=== PATIENT | male | born 1965 | race Caucasian/White ===

== ENCOUNTER 2017-03-23 11:47 | Outpatient (CLI) | payer MEDICARE, OTHER ==
[2017-03-23] VITALS (12 sets, daily range): BP systolic 88–127; BP diastolic 58–97; PULSE 65–141
[~2017-03-23 11:47] MED LIST: ALDACTONE 25MG25 M1 PO; AMLODIPINE5 MG PO; ANDROGEL162PKT TOP; ASACOL; ASACOL HD800 MG PO; ASACOL PO; ASPIRIN 81M81 MG/TA2 PO; ATIVAN 1MG T1 MG/TAB PO; CLEOCIN HC150 MG/CAP PO; COREG12.5 MG PO; D-31000 IU PO; DAZIDOX10 MG PO; EC-NAPROSYN500 MG PO; EMBREL; HCTZ; HUMIRA40 MG/0.1 SC; HYDROCODONE/APAP; IMODIUM 2MG CAPS2 MG PO; IMURAN 50MG TAB50 MG PO; INSPRA25 MG; INSPRA25 MG PO; LANOXIN 0.25M0.25 MG PO; LASIX 20MG TABL20 MG PO; LEVAQUIN 750MG750 M1 PO; LIPITOR20 MG PO; LOPRESSOR 550 MG/TAB PO; MASON NATURAL1000 IU PO; METOPROLOL TART75 MG PO; NARCAN .4MG0.4 MG/ML IJ; NEURONTIN100 MG/CAP; NEURONTIN300 MG/CAP PO; NORVASC2.5 MG PO; OXY IR5 MG PO; PERCOCET 325 MG1 TA5 PO; PERIDEX (CHLOR480 ML MM; PLAVIX 75MG TAB75 MG PO; PRADAXA 150MG150 MG PO; PREDNISONE20 MG PO; PRINIVIL10 MG PO; PRINIVIL5 MG PO; PROAIR HFA0.09 MG/AC IH; PROTONIX 40MG T40 MG PO; PROTONIX40 MG/Pack PO; REGADENOSON IV; REMICADE V100 MG/VIA; ROXICODONE 55 MG/TAB PO; ROXICODONE15 MG PO; SF 1.1% GEL1.1% DE; SODIUM FLUORID TOP; TOPROL XL 25MG25 MG PO; TOPROL XL 50MG50 MG PO; TOPROL XL100 MG PO; TYLENOL 500MG500 MG PO; VIAGRA100 MG PO; VITAMIN D31000 I1 PO; WELLBUTRIN 75MG75 MG PO; ZESTRIL 10MG10 MG PO; ZOFRAN 4MG T4 MG/TAB PO; ZOLOFT 100MG100 MG; ZOLOFT 100MG100 MG PO
[2017-03-23 12:33] LABS: PROTHROMBIN TIME 11.6 SECONDS (9.7-12.8)
[2017-03-23 12:36] LABS: POTASSIUM 4.9 mmol/L (3.4-5.0)
[2017-03-23 13:11] LABS: THYROID STIMULATING HORMONE 3.08 uIU/mL (0.465-4.680)
[2017-03-23] MEDS ORDERED: ASPIRIN 81M81 MG/TA2 PO (15:06)
[2017-03-23] MEDS ORDERED: CLEOCIN HC150 MG/CAP PO (15:06)
[2017-03-23] MEDS ORDERED: TYLENOL 500MG500 MG PO (15:07)
[2017-03-23] MEDS ORDERED: IMURAN 50MG TAB50 MG PO (15:07)
[2017-03-23] MEDS ORDERED: GLUCOPHAGE500 MG/TAB PO (15:08)
[2017-03-23] MEDS ORDERED: MULTIPLE VITAMI1 CAP PO (15:08)
[2017-03-23] MEDS ORDERED: CIALIS20 MG PO (15:09)
[2017-03-23] MEDS ORDERED: IMODIUM 2MG CAPS2 MG PO (15:10)
[2017-03-23] MEDS ORDERED: ZYRTEC 10MG10 MG PO (15:10)
[2017-03-23] MEDS ORDERED: ZOFRAN8 MG PO (15:11)
[2017-03-23] MEDS ORDERED: LIPOZENE PO (15:11)
[2017-03-23] MEDS ORDERED: METABOUP PLUS PO (15:12)
[2017-03-23] MEDS ORDERED: LASIX 20MG TABL20 MG PO (15:13)
[2017-03-23] MEDS ORDERED: PROVENTIL0.09 MG/A1 IH (15:13)
[2017-03-23] MEDS ORDERED: PACERONE400 MG PO (15:57)
[2017-03-23] MEDS ORDERED: ELIQUIS 5MG PO (15:57)
== END 2017-03-23 17:22 | disposition home or self-care (01) ==
LOC: EUO 11:47
PROVIDERS: Internal Medicine Interventional Cardiology
DX: I48.91 Unspecified atrial fibrillation (principal)
CPT/HCPCS: J0282; J7030; J7060

== ENCOUNTER 2017-07-06 10:54 | Day surgery (SDC) | payer MEDICARE, OTHER ==
[~2017-07-06] VITALS: Ht 175.3 cm; Wt 112.4 kg
[~2017-07-06 10:54] MED LIST changes: +CIALIS20 MG PO; +ELIQUIS 5MG PO; +GLUCOPHAGE500 MG/TAB PO; +LIPOZENE PO; +METABOUP PLUS PO; +MULTIPLE VITAMI1 CAP PO; +PACERONE400 MG PO; +PROVENTIL0.09 MG/A1 IH; +ZOFRAN8 MG PO; +ZYRTEC 10MG10 MG PO
[2017-07-06 11:24] VITALS: BP 137/119; PULSE 87; TEMP 98
[2017-07-06 11:28] VITALS: BP 137/119; PULSE 87; TEMP 98
[2017-07-06 11:56] VITALS: BP 114/85; PULSE 52; TEMP 98
[2017-07-06 13:03] LABS: INR 1.4 (0.8-3.0); PROTHROMBIN TIME 16.6 SECONDS (9.7-12.8)
[2017-07-06 13:10] LABS: POTASSIUM 4.3 mmol/L (3.4-5.0)
[2017-07-06 13:43] LABS: THYROID STIMULATING HORMONE 4.32 uIU/mL (0.465-4.680)
[2017-07-06 14:49] VITALS: BP 115/72; PULSE 66; TEMP 98
== END 2017-07-06 14:59 | disposition home or self-care (01) ==
LOC: COL.CAR 10:54
PROVIDERS: Internal Medicine Interventional Cardiology
DX: I48.0 Paroxysmal atrial fibrillation (principal); I34.0 Nonrheumatic mitral (valve) insufficiency; I50.20 Unspecified systolic (congestive) heart failure; Z88.8 Allergy status to other drugs, medicaments and biological substances; Z88.0 Allergy status to penicillin; Z88.1 Allergy status to other antibiotic agents
CPT/HCPCS: G9654; J2250; J2704

== ENCOUNTER 2018-07-01 11:15 | Day surgery (SDC) | payer MEDICARE, OTHER ==
[~2018-07-01] VITALS: Ht 175.4 cm; Wt 118.0 kg
[~2018-07-01 11:15] MED LIST changes: +GLUCOPHAGE1000 MG PO; -GLUCOPHAGE500 MG/TAB PO; +NEURONTIN600 MG/TAB PO; +WELLBUTRIN XL300 M1 PO
[2018-07-01 12:08] VITALS: BP 93/63; PULSE 98; TEMP 98.1
[2018-07-01 12:19] LABS: POTASSIUM 4.2 mmol/L (3.4-5.0)
[2018-07-01 12:24] LABS: INR 1.7 (0.8-3.0); PROTHROMBIN TIME 19.2 SECONDS (9.7-12.8)
[2018-07-01] MEDS ORDERED: COREG 25MG25 MG/TAB PO (12:25)
[2018-07-01] MEDS ORDERED: SAXENDA6 MG/ML SQ (12:33)
[2018-07-01] MEDS ORDERED: FLOMAX 0.40.4 MG/CAP PO (12:38)
[2018-07-01] MEDS ORDERED: ENTRESTO 24 MG1 EACH PO (12:40)
[2018-07-01] MEDS ORDERED: HUMIRA40 MG/0.8 SQ (12:44)
[2018-07-01 12:52] LABS: THYROID STIMULATING HORMONE 0.703 uIU/mL (0.465-4.680)
[2018-07-01 14:15] VITALS: BP 103/66; PULSE 80
[2018-07-01 15:00] VITALS: BP 104/73; PULSE 79
[2018-07-01 15:30] VITALS: BP 133/87; BP 92/60; PULSE 80
[2018-07-01 15:45] VITALS: BP 132/95; PULSE 80
== END 2018-07-01 17:07 | disposition home or self-care (01) ==
LOC: COL.CAR 11:15
PROVIDERS: Internal Medicine Interventional Cardiology
DX: I48.0 Paroxysmal atrial fibrillation (principal); Z79.01 Long term (current) use of anticoagulants; I11.0 Hypertensive heart disease with heart failure; I50.22 Chronic systolic (congestive) heart failure; I34.0 Nonrheumatic mitral (valve) insufficiency; Z95.810 Presence of automatic (implantable) cardiac defibrillator; Z79.82 Long term (current) use of aspirin; Z79.899 Other long term (current) drug therapy; Z87.891 Personal history of nicotine dependence; M45.9 Ankylosing spondylitis of unspecified sites in spine; G89.29 Other chronic pain; R51 Headache; R20.2 Paresthesia of skin; E11.9 Type 2 diabetes mellitus without complications; Z79.84 Long term (current) use of oral hypoglycemic drugs; Z87.448 Personal history of other diseases of urinary system
CPT/HCPCS: G9654; J2704; J7030

== ENCOUNTER 2018-07-12 07:50 | Day surgery (SDC) | payer MEDICARE, OTHER ==
[~2018-07-12] VITALS: Ht 175.6 cm; Wt 118.0 kg
[~2018-07-12 07:50] MED LIST changes: +COREG 25MG25 MG/TAB PO; +ENTRESTO 24 MG1 EACH PO; +FLOMAX 0.40.4 MG/CAP PO; +HUMIRA40 MG/0.8 SQ; -INSPRA25 MG; +SAXENDA6 MG/ML SQ
[2018-07-12 08:35] LABS: INR 1.2 (0.8-3.0); PROTHROMBIN TIME 13.5 SECONDS (9.7-12.8)
[2018-07-12 08:36] LABS: POTASSIUM 3.5 mmol/L (3.4-5.0)
[2018-07-12] MEDS ORDERED: CORDARONE200 MG/TAB PO (08:47)
[2018-07-12] MEDS ORDERED: ZOLOFT 25MG25 MG PO (08:58)
[2018-07-12 09:00] VITALS: BP 97/67; PULSE 59; TEMP 98.2
[2018-07-12 09:11] LABS: THYROID STIMULATING HORMONE 0.505 uIU/mL (0.465-4.680)
[2018-07-12 10:25] VITALS: BP 122/68; PULSE 77
[2018-07-12 10:40] VITALS: BP 111/65; PULSE 74
[2018-07-12 10:55] VITALS: BP 125/71; PULSE 73
[2018-07-12 11:10] VITALS: BP 116/62; PULSE 78
[2018-07-12 11:25] VITALS: BP 115/67; PULSE 76
== END 2018-07-12 14:50 | disposition home or self-care (01) ==
LOC: COL.CAR 07:50
PROVIDERS: Internal Medicine Interventional Cardiology
DX: I48.0 Paroxysmal atrial fibrillation (principal); I11.0 Hypertensive heart disease with heart failure; I50.9 Heart failure, unspecified; Z95.810 Presence of automatic (implantable) cardiac defibrillator; Z79.899 Other long term (current) drug therapy; Z79.82 Long term (current) use of aspirin; Z79.01 Long term (current) use of anticoagulants; Z79.84 Long term (current) use of oral hypoglycemic drugs; Z87.891 Personal history of nicotine dependence; K21.9 Gastro-esophageal reflux disease without esophagitis; M45.9 Ankylosing spondylitis of unspecified sites in spine; G47.33 Obstructive sleep apnea (adult) (pediatric); I25.2 Old myocardial infarction; R51 Headache; G89.29 Other chronic pain; R20.2 Paresthesia of skin
CPT/HCPCS: G9654; J0282; J2704; J7030; J7060

== ENCOUNTER → 2018-08-19 | Outpatient (CLI) | payer MEDICARE, OTHER ==
[~2018-08-19] MED LIST changes: +CORDARONE200 MG/TAB PO; +ZOLOFT 25MG25 MG PO
[2018-08-19 12:33] LABS: BILIRUBIN UNCONJUGATED 0.6 mg/dL (0.0-1.1); BILIRUBIN,DIRECT 0.2 mg/dL (0.0-0.4); BILIRUBIN,TOTAL 0.8 mg/dL (0.0-1.0); CREATININE, serum 1.72 mg/dL (0.66-1.25); TOTAL PROTEIN 6.9 gm/dL (6.4-8.2)
== END ==
LOC: COL.PUL 11:30
PROVIDERS: Internal Medicine Interventional Cardiology
DX: Z51.81 Encounter for therapeutic drug level monitoring (principal); I48.0 Paroxysmal atrial fibrillation; I40.9 Acute myocarditis, unspecified; Z87.891 Personal history of nicotine dependence

== ENCOUNTER 2018-09-18 11:05 | Day surgery (SDC) | payer MEDICARE, OTHER ==
[~2018-09-18] VITALS: Ht 175.6 cm; Wt 120.0 kg
[2018-09-18 11:45] LABS: INR 1.4 (0.8-3.0)
[2018-09-18] MEDS ORDERED: CIALIS5 MG PO (11:54)
[2018-09-18 12:02] VITALS: BP 127/85; PULSE 88; TEMP 98.1
[2018-09-18 12:23] LABS: THYROID STIMULATING HORMONE 0.262 uIU/mL (0.465-4.680)
[2018-09-18 13:00] VITALS: BP 102/66; PULSE 72
--- NOTE | 2018-09-18 13:00 | NUR ---
Report from Edin ALLAN with slabber light-pt saundra CV well. Pt resting well in bed, at bedside.
[2018-09-18 13:15] VITALS: BP 124/81; PULSE 75
[2018-09-18 13:30] VITALS: BP 102/80; PULSE 78
[2018-09-18 13:45] VITALS: BP 112/70; PULSE 72
[2018-09-18 14:00] VITALS: BP 123/94; PULSE 72
--- NOTE | 2018-09-18 14:00 | NUR ---
Pt has ambulated and saundra PO intake s n/v. PIV removed from R AC with catheter intact.
--- NOTE | 2018-09-18 14:15 | NUR ---
Pt discharged per w/c by nurse with .
== END 2018-09-18 15:48 | disposition home or self-care (01) ==
LOC: COL.CAR 11:05
PROVIDERS: Internal Medicine Interventional Cardiology
DX: I48.0 Paroxysmal atrial fibrillation (principal); I11.0 Hypertensive heart disease with heart failure; I50.22 Chronic systolic (congestive) heart failure; I42.9 Cardiomyopathy, unspecified; I27.20 Pulmonary hypertension, unspecified; I25.2 Old myocardial infarction; G47.33 Obstructive sleep apnea (adult) (pediatric); K21.9 Gastro-esophageal reflux disease without esophagitis; M19.90 Unspecified osteoarthritis, unspecified site; G89.29 Other chronic pain; E11.9 Type 2 diabetes mellitus without complications; N17.9 Acute kidney failure, unspecified; Z88.0 Allergy status to penicillin; Z88.1 Allergy status to other antibiotic agents; Z88.8 Allergy status to other drugs, medicaments and biological substances; Z79.82 Long term (current) use of aspirin; Z79.01 Long term (current) use of anticoagulants; Z87.891 Personal history of nicotine dependence; Z96.643 Presence of artificial hip joint, bilateral
CPT/HCPCS: J2704; J7030

== ENCOUNTER 2019-02-04 14:18 | Day surgery (SDC) | payer MEDICARE, OTHER ==
[~2019-02-04] VITALS: Ht 175.3 cm; Wt 111.0 kg
[~2019-02-04 14:18] MED LIST changes: +CIALIS5 MG PO
[2019-02-04] MEDS ORDERED: ENTRESTO 49 MG1 EACH PO (14:48)
[2019-02-04] MEDS ORDERED: LIPITOR 40MG TA40 MG PO (14:50)
[2019-02-04] MEDS ORDERED: FOLIC ACID0.4 MG PO (14:51)
[2019-02-04 14:57] VITALS: BP 128/86; PULSE 115; TEMP 98
[2019-02-04 14:57] LABS: POTASSIUM 4.3 mmol/L (3.4-5.0)
[2019-02-04 15:02] LABS: INR 1.2 (0.8-3.0); PROTHROMBIN TIME 14.2 SECONDS (9.7-12.8)
[2019-02-04 15:32] LABS: THYROID STIMULATING HORMONE 1.51 uIU/mL (0.465-4.680)
[2019-02-04 16:30] VITALS: BP 131/79; PULSE 78
[2019-02-04 16:45] VITALS: BP 126/79; PULSE 78
[2019-02-04 17:00] VITALS: BP 142/102; PULSE 79
[2019-02-04 17:15] VITALS: BP 128/76; PULSE 78; TEMP 97.8
--- NOTE | 2019-02-04 17:15 | NUR ---
Pt has ambulated, voided and saundra PO intake s n/v.
[2019-02-04 17:30] VITALS: BP 148/83; PULSE 78
--- NOTE | 2019-02-04 17:40 | NUR ---
PIV removed with catheter intact.
--- NOTE | 2019-02-04 17:50 | NUR ---
Pt discharged per w/c by nurse with .
== END 2019-02-04 17:54 | disposition home or self-care (01) ==
LOC: COL.CARD 14:18
PROVIDERS: Internal Medicine Cardiovascular Disease
DX: I48.0 Paroxysmal atrial fibrillation (principal); I48.2 Chronic atrial fibrillation; Z79.899 Other long term (current) drug therapy; Z96.643 Presence of artificial hip joint, bilateral; G47.33 Obstructive sleep apnea (adult) (pediatric); G89.29 Other chronic pain; M47.899 Other spondylosis, site unspecified; E11.9 Type 2 diabetes mellitus without complications; Z79.84 Long term (current) use of oral hypoglycemic drugs; Z79.01 Long term (current) use of anticoagulants; Z79.82 Long term (current) use of aspirin; Z87.891 Personal history of nicotine dependence; Z88.1 Allergy status to other antibiotic agents; Z88.0 Allergy status to penicillin; I34.0 Nonrheumatic mitral (valve) insufficiency; K21.9 Gastro-esophageal reflux disease without esophagitis; K51.90 Ulcerative colitis, unspecified, without complications
CPT/HCPCS: J0153; J1940; J2704

== ENCOUNTER 2019-04-04 10:02 | Day surgery (SDC) | payer MEDICARE, OTHER ==
[~2019-04-04] VITALS: Ht 175.4 cm; Wt 116.2 kg
[~2019-04-04 10:02] MED LIST changes: +ENTRESTO 49 MG1 EACH PO; +FOLIC ACID0.4 MG PO; +LIPITOR 40MG TA40 MG PO
[2019-04-04 10:54] VITALS: BP 112/80; PULSE 119; TEMP 98.2
[2019-04-04 11:03] LABS: INR 1.4 (0.8-3.0); PROTHROMBIN TIME 16.2 SECONDS (9.7-12.8)
--- NOTE | 2019-04-04 11:04 | NUR ---
Chart being reviewed for procedure set for 1200. Most recent H&P dated 12/18/18. This RN contacting Dr Marte to notify regarding this. MD to update H&P prior to procedure.
[2019-04-04 11:34] LABS: THYROID STIMULATING HORMONE 4.21 uIU/mL (0.465-4.680)
[2019-04-04 12:30] VITALS: BP 99/66; PULSE 73; TEMP 98.2
--- NOTE | 2019-04-04 12:30 | NUR ---
Procedure complete. VSS. REsting quietly in bed.
[2019-04-04 12:45] VITALS: BP 101/74; PULSE 72; TEMP 98.2
[2019-04-04 13:00] VITALS: BP 97/67; PULSE 73; TEMP 98.2
[2019-04-04 13:15] VITALS: BP 110/72; PULSE 79; TEMP 98.2
[2019-04-04 13:45] VITALS: BP 96/62; PULSE 76; TEMP 98.2
--- NOTE | 2019-04-04 13:45 | NUR ---
INT discontinued intact. Discharge instructions given. Transferred to private car by ashanti
== END 2019-04-04 13:50 | disposition home or self-care (01) ==
LOC: COL.CAR 10:02
PROVIDERS: Internal Medicine Interventional Cardiology
DX: I48.91 Unspecified atrial fibrillation (principal); I48.92 Unspecified atrial flutter; I11.0 Hypertensive heart disease with heart failure; I50.22 Chronic systolic (congestive) heart failure; I47.1 Supraventricular tachycardia; G47.33 Obstructive sleep apnea (adult) (pediatric); K21.9 Gastro-esophageal reflux disease without esophagitis; M19.90 Unspecified osteoarthritis, unspecified site; G89.29 Other chronic pain; E11.9 Type 2 diabetes mellitus without complications; N17.9 Acute kidney failure, unspecified; Z79.82 Long term (current) use of aspirin; Z79.01 Long term (current) use of anticoagulants; Z88.0 Allergy status to penicillin; Z88.1 Allergy status to other antibiotic agents; Z88.8 Allergy status to other drugs, medicaments and biological substances; I25.2 Old myocardial infarction; Z95.0 Presence of cardiac pacemaker
CPT/HCPCS: J2704; J7030

== ENCOUNTER → 2019-08-01 | Emergency (ER) | payer MEDICARE, OTHER ==
[~2019-08-01] VITALS: Ht 175.3 cm; Wt 120.5 kg
[~2019-08-01] MED LIST changes: +ZESTRIL 20MG TA20 MG PO
[2019-08-01 16:52] VITALS: TEMP 98.1
[2019-08-01 18:32] LABS: BASO # 0.1 (0.0-0.2); BASO % 0.8 % (0.0-2.0); EOS # 0.1 (0.0-0.7); EOS % 1.6 % (0-4.0); GRAN # 5.5 (1.4-6.5); GRAN % 70.6 % (42.2-75.2); HEMOGLOBIN 13.5 g/dl (13.5-18.0); LYMPH % 12.6 % (20.0-51.0); MEAN CELL VOLUME 101 fl (80.0-100.0); MEAN CORPUSCULAR HEMOGLOBIN 32 pg (27.0-31.0); MEAN CORPUSCULAR HGB CONC 32 g/dl (33.0-37.0); MEAN PLATELET VOLUME 9.8 fl (7.4-10.4); MONO # 1.1 (0.1-0.6); PLATELET COUNT 273 K/mm3 (130-400); RED BLOOD COUNT 4.17 M/mm3 (4.20-5.60); REDCELL DISTRIBUTION WIDTH-CV 13.5 % (11.5-14.5)
[2019-08-01 18:36] LABS: INR 1.2 (0.8-3.0); PROTHROMBIN TIME 14.2 SECONDS (9.7-12.8)
[2019-08-01 18:38] LABS: PARTIAL THROMBOPLASTIN TIME 44.1 SECONDS (26.0-37.0)
[2019-08-01 18:45] LABS: ALBUMIN 4.8 gm/dL (3.5-5.0); BILIRUBIN,TOTAL 0.7 mg/dL (0.0-1.0); CALCIUM 9.2 mg/dL (8.4-10.2); CREATININE, serum 0.84 (0.66-1.25); POTASSIUM 4.2 mmol/L (3.4-5.0); TOTAL PROTEIN 8.4 gm/dL (6.4-8.2)
[2019-08-01 20:13] VITALS: BP 116/87
[2019-08-01 20:49] VITALS: PULSE 123
== END ==
LOC: COL.ER 16:37
PROVIDERS: Emergency Medicine
DX: S06.369A Traumatic hemorrhage of cerebrum, unspecified, with loss of consciousness of unspecified duration, initial encounter (principal); I48.91 Unspecified atrial fibrillation; E11.9 Type 2 diabetes mellitus without complications; Z79.01 Long term (current) use of anticoagulants; W00.0XXA Fall on same level due to ice and snow, initial encounter; W22.8XXA Striking against or struck by other objects, initial encounter; Y92.009 Unspecified place in unspecified non-institutional (private) residence as the place of occurrence of the external cause
CPT/HCPCS: J1953

== ENCOUNTER 2019-09-14 01:49 | Emergency (ER) | payer MEDICARE, OTHER ==
[~2019-09-14] VITALS: Ht 175.3 cm; Wt 122.3 kg
[2019-09-14 01:54] VITALS: TEMP 97.5
[2019-09-14 02:18] LABS: BASO # 0.1 (0.0-0.2); BASO % 0.7 % (0.0-2.0); EOS # 0.2 (0.0-0.7); EOS % 2.6 % (0-4.0); GRAN # 5.4 (1.4-6.5); GRAN % 67.2 % (42.2-75.2); HEMATOCRIT 37.5 % (42.0-52.0); HEMOGLOBIN 12.2 g/dl (13.5-18.0); LYMPH # 1.4 (1.2-3.4); LYMPH % 17.3 % (20.0-51.0); MEAN CELL VOLUME 102 fl (80.0-100.0); MEAN CORPUSCULAR HEMOGLOBIN 33 pg (27.0-31.0); MEAN CORPUSCULAR HGB CONC 33 g/dl (33.0-37.0); MEAN PLATELET VOLUME 9.8 fl (7.4-10.4); PLATELET COUNT 244 K/mm3 (130-400); RED BLOOD COUNT 3.67 M/mm3 (4.20-5.60); REDCELL DISTRIBUTION WIDTH-CV 14.1 % (11.5-14.5)
[2019-09-14 02:32] LABS: ALANINE AMINOTRANSFERASE 27 U/L (21-72); ALBUMIN 4.3 gm/dL (3.5-5.0); ALKALINE PHOSPHATASE 61 U/L (50-136); ANION GAP 12 mmol/L (7-16); AST,SGOT 58 U/L (15-37); BILIRUBIN,TOTAL 0.4 mg/dL (0.0-1.0); BLOOD UREA NITROGEN 11 mg/dL (9-20); CALCIUM 8.9 mg/dL (8.4-10.2); CARBON DIOXIDE 25 mmol/L (22-30); CHLORIDE 103 mmol/L (98-107); CREATININE, serum 0.97 (0.66-1.25); GLUCOSE 106 mg/dL (74-106); POTASSIUM 4.1 mmol/L (3.4-5.0); SODIUM 140 mmol/L (137-145); TOTAL PROTEIN 7.6 gm/dL (6.4-8.2)
[2019-09-14 02:42] LABS: LIPASE 81 U/L (23-300)
[2019-09-14 02:54] LABS: TROPONIN-I < 0.012 ng/mL (0.000-0.035)
[2019-09-14 03:00] LABS: INR 1.1 (0.8-3.0); PROTHROMBIN TIME 13.1 SECONDS (9.7-12.8)
[2019-09-14 04:24] LABS: D-DIMER < 200.00 ng/mLDDu (200-230)
[2019-09-14] MEDS ORDERED: CARDIZEM LA120 MG PO (04:28)
[2019-09-14 06:08] VITALS: BP 137/97; PULSE 115
== END 2019-09-14 06:08 | disposition home or self-care (01) ==
LOC: COL.ER 01:49
PROVIDERS: Emergency Medicine
DX: R07.89 Other chest pain (principal); R00.0 Tachycardia, unspecified; I50.9 Heart failure, unspecified; I48.91 Unspecified atrial fibrillation; Z79.82 Long term (current) use of aspirin; Z79.84 Long term (current) use of oral hypoglycemic drugs
CPT/HCPCS: J7030

== ENCOUNTER 2019-09-19 13:07 | Emergency (ER) | payer MEDICARE, OTHER ==
[~2019-09-19] VITALS: Ht 175.3 cm; Wt 122.7 kg
[~2019-09-19 13:07] MED LIST changes: +CARDIZEM LA120 MG PO
[2019-09-19 13:18] VITALS: TEMP 97.9
[2019-09-19 16:40] VITALS: BP 96/58; PULSE 85
== END 2019-09-19 16:40 | disposition home or self-care (01) ==
LOC: COL.ER 13:07
DX: I50.9 Heart failure, unspecified (principal); I48.92 Unspecified atrial flutter; E11.9 Type 2 diabetes mellitus without complications; F41.9 Anxiety disorder, unspecified; E66.9 Obesity, unspecified; Z88.0 Allergy status to penicillin; Z79.01 Long term (current) use of anticoagulants; Z79.82 Long term (current) use of aspirin; Z88.8 Allergy status to other drugs, medicaments and biological substances; Z68.39 Body mass index [BMI] 39.0-39.9, adult
CPT/HCPCS: J2704

== ENCOUNTER 2019-12-12 16:52 | Emergency (ER) | payer MEDICARE, OTHER ==
[~2019-12-12] VITALS: Ht 175.3 cm; Wt 118.2 kg
[2019-12-12] MEDS ORDERED: NORCO 325 MG-7.1 TAB PO (20:17)
[2019-12-12] MEDS ORDERED: CRUTCHES MC (20:20)
[2019-12-12 21:02] VITALS: BP 128/68; PULSE 70; TEMP 98
== END 2019-12-12 20:58 | disposition home or self-care (01) ==
LOC: COL.ER 16:52
DX: S82.851A Displaced trimalleolar fracture of right lower leg, initial encounter for closed fracture (principal); E11.9 Type 2 diabetes mellitus without complications; I10 Essential (primary) hypertension; I48.91 Unspecified atrial fibrillation; Z87.891 Personal history of nicotine dependence; Z79.84 Long term (current) use of oral hypoglycemic drugs; Z95.0 Presence of cardiac pacemaker; Z79.82 Long term (current) use of aspirin; Z79.01 Long term (current) use of anticoagulants; W11.XXXA Fall on and from ladder, initial encounter
CPT/HCPCS: J1170; J2270; J2405; J2704; J7030

== ENCOUNTER → 2019-12-24 | Day surgery (SDC) | payer MEDICARE, OTHER ==
[~2019-12-24] VITALS: Ht 175.3 cm; Wt 118.8 kg
[~2019-12-24] MED LIST changes: +COLACE 100100 MG/CAP PO; +CRUTCHES MC; +MOBIC15 MG PO; +NORCO 325 MG-7.1 TAB PO; +PHENERGAN 25 TA25 MG PO
[2019-12-24 15:25] VITALS: BP 131/90; PULSE 69; TEMP 97.6
[2019-12-24 15:40] VITALS: BP 142/89; PULSE 69
--- NOTE | 2019-12-24 15:50 | NUR ---
1525 PATIENT TO [facility] VIA CART. REPORT AND CARE OF PATIENT RECIEVED FROM SANJANA BEJARANO. PATIENT ALERT. DENIES NEED FOR PAIN MEDICATION. VSS. LC WRAP OVER SPLINT TO RLE. ICE BAG TO INCISION.
--- NOTE | 2019-12-24 15:52 | NUR ---
1540 PATIENT SITTIING UP EATING TOAST WITH PEANUT BUTTER AND JELLY. DRINKING COFFEE AND SPRITE. DENIES ANY OTHER NEEDS. PATIENT'S IS AT CHAIR SIDE.
[2019-12-24 15:55] VITALS: BP 127/68; PULSE 74
[2019-12-24 15:57] VITALS: BP 135/75; PULSE 70; TEMP 98.1
[2019-12-24 16:10] VITALS: BP 119/66; PULSE 74
--- NOTE | 2019-12-24 16:19 | NUR ---
1610 PATIENT ALERT. DENIES ANY NEEDS. IV DC'D. TOLERATED WELL. PATIENT GETTING SELF DRESSED. AT CHAIRSIDE.
--- NOTE | 2019-12-24 16:36 | NUR ---
1635 PATIENT ALERT. D/C INSTRUCTIONS/EDUCATION VERB AND WRITTEN GIVEN TO PATIENT AND HIS SPOUSE. PRESCRIPTIONS FOR MELOXICAM 15 MG, COLACE AND PROMETHAZINE GIVEN. PATIENT REQUESTED A PAIN PILL BEFORE DISCHARGE. OXYCODONE PO GIVEN PER DOCTOR ORDER. SEE EMAR. PATIENT TRANSFERRED TO LOCATED WITHIN [facility] PER W/C BY SANJANA GREENBERG.
[2019-12-24 18:08] VITALS: BP 131/90; PULSE 84; TEMP 97
== END ==
LOC: SDCO 11:22
DX: S82.841A Displaced bimalleolar fracture of right lower leg, initial encounter for closed fracture (principal); I48.91 Unspecified atrial fibrillation; E11.9 Type 2 diabetes mellitus without complications; I11.0 Hypertensive heart disease with heart failure; I50.9 Heart failure, unspecified; I25.2 Old myocardial infarction; G89.29 Other chronic pain; G47.33 Obstructive sleep apnea (adult) (pediatric); F41.9 Anxiety disorder, unspecified; K21.9 Gastro-esophageal reflux disease without esophagitis; K51.90 Ulcerative colitis, unspecified, without complications; M45.9 Ankylosing spondylitis of unspecified sites in spine; Z79.82 Long term (current) use of aspirin; Z86.718 Personal history of other venous thrombosis and embolism; Z79.01 Long term (current) use of anticoagulants; Z79.899 Other long term (current) drug therapy; Z88.0 Allergy status to penicillin; Z88.9 Allergy status to unspecified drugs, medicaments and biological substances; Z87.891 Personal history of nicotine dependence; Z80.9 Family history of malignant neoplasm, unspecified
CPT/HCPCS: C1713; J0690; J1170; J1885; J2250; J2405; J2704; J3010; J7030

== ENCOUNTER → 2020-02-13 | Outpatient (CLI) | payer MEDICARE, OTHER ==
[~2020-02-13] MED LIST changes: +ASPIRIN E.C. 8181 MG PO; +LIPITOR 10MG10 MG PO; -MULTIPLE VITAMI1 CAP PO; +MULTIPLE VITAMI1 TA5 PO; +VOLTAREN GEL 1%1 TU TP
[2020-02-13 19:51] LABS: ALBUMIN 4.5 gm/dL (3.5-5.0); BASO % 0.5 % (0.0-2.0); BILIRUBIN,TOTAL 0.6 mg/dL (0.0-1.0); CALCIUM 9.7 mg/dL (8.4-10.2); CREATININE, serum 0.97 (0.66-1.25); EOS # 0.2 (0.0-0.7); GRAN # 3.8 (1.4-6.5); GRAN % 68.7 % (42.2-75.2); LYMPH # 0.9 (1.2-3.4); LYMPH % 16.5 % (20.0-51.0); MEAN CELL VOLUME 106 fl (80.0-100.0); MEAN CORPUSCULAR HEMOGLOBIN 35 pg (27.0-31.0); MEAN CORPUSCULAR HGB CONC 33 g/dl (33.0-37.0); MEAN PLATELET VOLUME 9.5 fl (7.4-10.4); MONO # 0.6 (0.1-0.6); MONO % 10.9 % (1.7-9.3); PLATELET COUNT 252 K/mm3 (130-400); POTASSIUM 4.9 mmol/L (3.4-5.0); REDCELL DISTRIBUTION WIDTH-CV 13.2 % (11.5-14.5); TOTAL PROTEIN 8.3 gm/dL (6.4-8.2)
== END ==
LOC: LDRO 19:22 → ZCOL.LAB 19:22
PROVIDERS: Internal Medicine Interventional Cardiology
DX: I50.22 Chronic systolic (congestive) heart failure (principal)

== ENCOUNTER 2020-02-24 11:01 | Outpatient (CLI) | payer MEDICARE, OTHER ==
[2020-02-24] VITALS (9 sets, daily range): BP systolic 102–125; BP diastolic 60–97; PULSE 81–125
[~2020-02-24] VITALS: Ht 175.3 cm; Wt 122.8 kg
[~2020-02-24 11:01] MED LIST changes: -ASPIRIN E.C. 8181 MG PO; -LIPITOR 10MG10 MG PO; -VOLTAREN GEL 1%1 TU TP
[2020-02-24 12:02] LABS: POTASSIUM 4.2 mmol/L (3.4-5.0)
[2020-02-24 12:18] LABS: INR 1.5 (0.8-3.0); PROTHROMBIN TIME 17.1 SECONDS (9.7-12.8)
[2020-02-24] MEDS ORDERED: IMODIUM 2MG CAPS2 MG PO (12:26)
[2020-02-24] MEDS ORDERED: CIALIS5 MG PO (12:28)
[2020-02-24] MEDS ORDERED: SAXENDA6 MG/ML SQ (12:30)
[2020-02-24] MEDS ORDERED: ASPIRIN E.C. 8181 MG PO (12:32)
[2020-02-24] MEDS ORDERED: LIPITOR 10MG10 MG PO (12:32)
[2020-02-24] MEDS ORDERED: IMURAN 50MG TAB50 MG PO (12:33)
[2020-02-24] MEDS ORDERED: WELLBUTRIN XL300 M1 PO (12:33)
[2020-02-24] MEDS ORDERED: COREG 25MG25 MG/TAB PO (12:34)
[2020-02-24] MEDS ORDERED: VOLTAREN GEL 1%1 TU TP (12:34)
[2020-02-24 14:08] LABS: THYROID STIMULATING HORMONE 3.98 uIU/mL (0.465-4.680)
--- NOTE | 2020-02-24 14:50 | NUR ---
Discharge instructions given to pt.pt verbalizes understanding.INT removed,catheter tip intact.Pt escorted out via wheelchair by this nurse.
== END 2020-02-24 17:26 | disposition home or self-care (01) ==
LOC: COL.RAD 11:01
PROVIDERS: Internal Medicine Interventional Cardiology
DX: I48.0 Paroxysmal atrial fibrillation (principal); I49.3 Ventricular premature depolarization
CPT/HCPCS: J7030

== ENCOUNTER 2020-06-21 05:55 | Day surgery (SDC) | payer MEDICARE, OTHER ==
[~2020-06-21] VITALS: Ht 175.3 cm; Wt 122.7 kg
[~2020-06-21 05:55] MED LIST changes: +ASPIRIN E.C. 8181 MG PO; +LIPITOR 10MG10 MG PO; +VOLTAREN GEL 1%1 TU TP
[2020-06-21 06:54] VITALS: BP 112/61; PULSE 93; TEMP 99
[2020-06-21] MEDS ORDERED: MULTAQ400 MG PO (07:20)
[2020-06-21] MEDS ORDERED: NEURONTIN300 MG/CAP PO (07:24)
[2020-06-21] MEDS ORDERED: MAG-OX 400400 MG/TAB PO (07:26)
[2020-06-21] MEDS ORDERED: K-DUR20 MEQ PO (07:28)
[2020-06-21] MEDS ORDERED: ZOLOFT 100MG100 MG PO (07:29)
[2020-06-21] MEDS ORDERED: SF 1.1% GEL1.1% DT (07:33)
[2020-06-21] MEDS ORDERED: DAZIDOX10 MG PO (07:41)
[2020-06-21] MEDS ORDERED: ZYRTEC 10MG10 MG PO (07:44)
[2020-06-21] MEDS ORDERED: VITAMIN C500 MG PO (07:46)
[2020-06-21 09:13] VITALS: BP 81/37; PULSE 66; TEMP 97.3
--- NOTE | 2020-06-21 09:13 | NUR ---
TO RM 8 PER CART FROM PACU. ALERT ORIENTED X3, TALKING TO STAFF AND EATING ICE CHIPS. DENIES PAIN OR DISCOMFORT. OPERATIVE LEG ELEVATED/ICED. DRESSING CLEAN DRY INTACT. ABLE TO SLIGHTLY WIGGLE TOES. CAM WALKING BOOT ON.
[2020-06-21 09:30] VITALS: BP 101/69; PULSE 64
--- NOTE | 2020-06-21 09:30 | NUR ---
RECEIVED DIET PEPSI. PATIENT WATCHING TV.
[2020-06-21] MEDS ORDERED: ASPIRIN 32325 MG/TAB PO (09:33)
[2020-06-21 09:45] VITALS: BP 98/52; PULSE 92
[2020-06-21] MEDS ORDERED: COLACE 100100 MG/CAP PO (09:45)
[2020-06-21] MEDS ORDERED: ZOFRAN 4MG T4 MG/TAB PO (09:45)
--- NOTE | 2020-06-21 09:45 | NUR ---
RECEIVED MODESTA CRACKERS WITH PEANUT BUTTER.
[2020-06-21 10:00] VITALS: BP 101/49; PULSE 66
--- NOTE | 2020-06-21 10:00 | NUR ---
ATE 100% AND TOLERATED WELL SAT ON SIDE OF BED AND VOIDED 400CC LIGHT YELLOW URINE.
--- NOTE | 2020-06-21 10:10 | NUR ---
RECEIVED DISCHARGE INSTRUCTIONS AND VERBALIZED UNDERSTANDING. DISCONTINUED IV AND INT- CATHETER INTACT.
--- NOTE | 2020-06-21 10:30 | NUR ---
DISCHARGED PER WC BY NURSING STAFF TO PRIVATE CAR IN CARE OF JUAN DANIEL.
== END 2020-06-21 10:51 | disposition home or self-care (01) ==
LOC: SDCO 05:55
DX: T84.84XA Pain due to internal orthopedic prosthetic devices, implants and grafts, initial encounter (principal); M19.90 Unspecified osteoarthritis, unspecified site; E11.9 Type 2 diabetes mellitus without complications; I11.0 Hypertensive heart disease with heart failure; I50.9 Heart failure, unspecified; G47.33 Obstructive sleep apnea (adult) (pediatric); I48.91 Unspecified atrial fibrillation; I25.2 Old myocardial infarction; I25.10 Atherosclerotic heart disease of native coronary artery without angina pectoris; K21.9 Gastro-esophageal reflux disease without esophagitis; G89.29 Other chronic pain; Z20.828 Contact with and (suspected) exposure to other viral communicable diseases; Z96.641 Presence of right artificial hip joint; Z87.891 Personal history of nicotine dependence; Z79.82 Long term (current) use of aspirin; Z79.84 Long term (current) use of oral hypoglycemic drugs; Z88.0 Allergy status to penicillin; Z91.048 Other nonmedicinal substance allergy status; Z79.01 Long term (current) use of anticoagulants; Z88.1 Allergy status to other antibiotic agents
CPT/HCPCS: J0690; J2250; J2405; J2704; J2795; J3010

== ENCOUNTER → 2020-12-23 | Outpatient (CLI) | payer MEDICARE, OTHER ==
[~2020-12-23] MED LIST changes: +ASPIRIN 32325 MG/TAB PO; +JARDIANCE25 PO; +K-DUR20 MEQ PO; +K-TAB20 PO; +LASIX 40MG TABL40 MG PO; +MAG-OX 400400 MG/TAB PO; +MULTAQ400 MG PO; +NARCAN4 MG NS; +NATURAL IRON65 MG; +PACERONE200 MG PO; +SF 1.1% GEL1.1% DT; +VERQUVO2.5 MG PO; +VITAMIN C500 MG PO
[2020-12-23 17:04] LABS: TROPONIN-I < 0.012 ng/mL (0.000-0.035)
== END ==
LOC: ZCOL.LAB 16:34
PROVIDERS: Nurse Practitioner
DX: I48.91 Unspecified atrial fibrillation (principal)

== ENCOUNTER 2020-12-30 12:01 | Day surgery (SDC) | payer MEDICARE, OTHER ==
[~2020-12-30] VITALS: Ht 175.4 cm; Wt 122.0 kg
[2020-12-30] VITALS (10 sets, daily range): BP systolic 91–136; BP diastolic 35–92; PULSE 84–92; TEMP 98
[~2020-12-30 12:01] MED LIST changes: -JARDIANCE25 PO; -K-TAB20 PO; -LASIX 40MG TABL40 MG PO; -NARCAN4 MG NS; -NATURAL IRON65 MG; -PACERONE200 MG PO; -VERQUVO2.5 MG PO
[2020-12-30 13:21] LABS: MEAN CELL VOLUME 104 fl (80.0-100.0); MEAN CORPUSCULAR HGB CONC 33 g/dl (33.0-37.0); PLATELET COUNT 245 K/mm3 (130-400); RED BLOOD COUNT 2.93 M/mm3 (4.20-5.60); REDCELL DISTRIBUTION WIDTH-CV 14.6 % (11.5-14.5)
[2020-12-30 13:23] LABS: HEMATOCRIT 30.5 % (42.0-52.0); HEMOGLOBIN 9.9 g/dl (13.5-18.0); MEAN CORPUSCULAR HEMOGLOBIN 34 pg (27.0-31.0)
[2020-12-30 13:28] LABS: CALCIUM 9.1 mg/dL (8.4-10.2); CREATININE, serum 1.19 (0.66-1.25); INR 1.4 (0.8-3.0); POTASSIUM 4.5 mmol/L (3.4-5.0); PROTHROMBIN TIME 15.4 SECONDS (9.7-12.8)
[2020-12-30] MEDS ORDERED: ASPIRIN E.C. 8181 MG PO (13:29)
[2020-12-30] MEDS ORDERED: COREG12.5 MG PO (13:33)
[2020-12-30] MEDS ORDERED: IMURAN 50MG TAB50 MG PO (13:35)
--- NOTE | 2020-12-30 13:45 | NUR ---
previously dicussing procedure with pt. Procedure pending creatinine results. Creatinine now resulting at 1.19. MD contacted regarding these results, states procedure may proceed. Pt procedure scheduled at 1400. This RN asking whether pt may be transported to [facility] for procedure. states he will contact this RN when he is ready for procedure. Will standby to transport pt for procedure once contacted by .
[2020-12-30] MEDS ORDERED: NARCAN4 MG NS (13:58)
[2020-12-30] MEDS ORDERED: FOLIC ACID0.4 MG PO (13:59)
[2020-12-30] MEDS ORDERED: NATURAL IRON65 MG (14:00)
--- NOTE | 2020-12-30 14:34 | NUR ---
SEE MERGE DOCUMENTATION FOR MEDICATION ADMINISTRATION TIMES AND INTRA/POST PROCEDURE SEDATION ASSESSMENTS. RIGHT HAND BARBEAU TEST POSITIVE.
--- NOTE | 2020-12-30 15:00 | NUR ---
pt to room [address] lab technician, pt is awake and alert, in room, states Dr Aj talked with her. Pt has no c/o, radial band on with 14cc, call light in reach. drinks sprite, no c/o or concerns at this time.
--- NOTE | 2020-12-30 15:45 | NUR ---
pt has used urinal, total of 1800cc clear yellow urine, iv fluids con't at 100cc/hr per order, pt eats sandwhich, no c/o or requests
--- NOTE | 2020-12-30 17:00 | NUR ---
PT VOIDED 650CC CLEAR YELLOW URINE. RELEASED 2CC FROM BAND, PT BLED IMMEDIATLY, 2CC OF AIR REPLACED, WITH NO FURTHER BLEEDING WILL CON'T TO MONITOR.
--- NOTE | 2020-12-30 18:00 | NUR ---
RELEASED TR BAND, 1-2 CC AT A TIME OVER 20 MIN. NO BLEEDING OR SWELLING NOTED, BANDAID OVER SITE WITH ANGE, PT WANTING TO WEAR VELCO BRACE TO HELP WITH NOT USING RIGHT WRIST. REVIEWED DISCHARGE INST. WITH PT ON NEXT APPT, NO MED CHANGES TODAY, WILL TAKE MEDS BEFORE ADMISSION WITH B/P BEING LOW AT HOME. REVIEWED CARE TO WRIST AND PRECAUTIONS TO TAKE AND TIME FRAME, WITH VERBAL UNDERSTANIDNG. PT WILL NOT TAKE METFORMIN FOR 48 HRS AT HOME. ALSO REVIEWED ACTIVITY WITH PT ON MODERATE SEDATION WITH VERBAL UNDERSTANDING. PT UP IN ROOM, VOIDED ANOTHER 1200CC TOTAL THIS HOUR. IV D'CD INTACT. PT DRESSED. DISCHARGED AT 1830 VIA W/C TO CAR WITH .
== END 2020-12-30 18:30 | disposition home or self-care (01) ==
LOC: COL.CAR 12:01
PROVIDERS: Internal Medicine Interventional Cardiology
DX: I25.10 Atherosclerotic heart disease of native coronary artery without angina pectoris (principal); I48.0 Paroxysmal atrial fibrillation; I50.22 Chronic systolic (congestive) heart failure; I11.0 Hypertensive heart disease with heart failure; I42.9 Cardiomyopathy, unspecified; I65.29 Occlusion and stenosis of unspecified carotid artery; R94.39 Abnormal result of other cardiovascular function study; D64.9 Anemia, unspecified; Z95.810 Presence of automatic (implantable) cardiac defibrillator; Z79.891 Long term (current) use of opiate analgesic; Z79.899 Other long term (current) drug therapy; Z79.82 Long term (current) use of aspirin; Z79.01 Long term (current) use of anticoagulants; Z87.891 Personal history of nicotine dependence
CPT/HCPCS: C1769; C1894; J1644; J1940; J2250; Q9967

== ENCOUNTER → 2021-04-15 | Outpatient (CLI) | payer MEDICARE, OTHER ==
[~2021-04-15] MED LIST changes: +JARDIANCE25 PO; +K-TAB20 PO; +LASIX 40MG TABL40 MG PO; +NARCAN4 MG NS; +NATURAL IRON65 MG; +PACERONE200 MG PO; +VERQUVO2.5 MG PO
== END ==
LOC: COL.RAD 15:18
DX: R07.81 Pleurodynia (principal); W19.XXXA Unspecified fall, initial encounter; Z95.0 Presence of cardiac pacemaker

== ENCOUNTER 2021-04-25 21:52 | Observation (INO) | payer MEDICARE, OTHER ==
[~2021-04-25] VITALS: Ht 175.3 cm; Wt 123.5 kg
[~2021-04-25 21:52] MED LIST changes: -JARDIANCE25 PO; -K-TAB20 PO; -LASIX 40MG TABL40 MG PO; -PACERONE200 MG PO; -VERQUVO2.5 MG PO
[2021-04-25 22:25] LABS: BASO % 0.7 % (0.0-2.0); EOS # 0.1 K/mm3 (0.0-0.7); EOS % 1.2 % (0-4.0); GRAN # 4.6 K/mm3 (1.4-6.5); GRAN % 76.8 % (42.2-75.2); HEMATOCRIT 40.3 % (42.0-52.0); HEMOGLOBIN 13.2 g/dl (13.5-18.0); LYMPH # 0.7 K/mm3 (1.2-3.4); LYMPH % 11.2 % (20.0-51.0); MEAN CELL VOLUME 103 fl (80.0-100.0); MEAN CORPUSCULAR HEMOGLOBIN 34 pg (27.0-31.0); MEAN CORPUSCULAR HGB CONC 33 g/dl (33.0-37.0); MEAN PLATELET VOLUME 9.5 fl (7.4-10.4); MONO # 0.6 K/mm3 (0.1-0.6); MONO % 9.6 % (1.7-9.3); PLATELET COUNT 278 K/mm3 (130-400); RED BLOOD COUNT 3.92 M/mm3 (4.20-5.60); REDCELL DISTRIBUTION WIDTH-CV 17.6 % (11.5-14.5)
[2021-04-25 22:40] LABS: ALBUMIN 4.2 gm/dL (3.5-5.0); BILIRUBIN,TOTAL 0.6 mg/dL (0.2-1.2); CALCIUM 9.9 mg/dL (8.4-10.2); CREATININE, serum 1.53 mg/dL (0.72-1.25); POTASSIUM 3.9 mmol/L (3.5-4.5); TOTAL PROTEIN 8.1 gm/dL (6.2-8.1)
[2021-04-25 22:46] LABS: TROPONIN-I 0.01 ng/mL (0.00-0.033)
[2021-04-26] VITALS (169 sets, daily range): BP systolic 91–117; BP diastolic 59–86; PULSE 88–103; TEMP 97.4–98.6; O2SAT 88–100
--- NOTE | 2021-04-26 04:40 | NUR ---
Patient arrived to ICU 7 at 0400. Assessment complete and charted. Patient alert and orientated. VS stable. Med rec reviewed with patient. Call light in reach.
[2021-04-26] MEDS ORDERED: LIPITOR 40MG TA40 MG PO (05:02)
[2021-04-26] MEDS ORDERED: COREG 25MG25 MG/TAB PO (05:10)
[2021-04-26] MEDS ORDERED: LASIX 40MG TABL40 MG PO (05:12)
[2021-04-26] MEDS ORDERED: K-TAB20 PO ×2 (05:19→05:22)
[2021-04-26] MEDS ORDERED: JARDIANCE25 PO (05:26)
--- NOTE | 2021-04-26 05:42 | NUR ---
Thi QUIÑONEZ informed of patient EKG changes to sinus with first degree. Per Thi QUIÑONEZ continue on cardizem due to patient unsure of what "new" home medication for afib is.
[2021-04-26 05:58] LABS: BASO # 0.1 K/mm3 (0.0-0.2); BASO % 0.8 % (0.0-2.0); EOS # 0.1 K/mm3 (0.0-0.7); GRAN # 4.2 K/mm3 (1.4-6.5); GRAN % 63.7 % (42.2-75.2); HEMATOCRIT 39.4 % (42.0-52.0); HEMOGLOBIN 12.9 g/dl (13.5-18.0); LYMPH # 1.3 K/mm3 (1.2-3.4); LYMPH % 19.7 % (20.0-51.0); MEAN CELL VOLUME 105 fl (80.0-100.0); MEAN CORPUSCULAR HEMOGLOBIN 34 pg (27.0-31.0); MEAN CORPUSCULAR HGB CONC 33 g/dl (33.0-37.0); MEAN PLATELET VOLUME 9.6 fl (7.4-10.4); MONO # 0.9 K/mm3 (0.1-0.6); MONO % 13.5 % (1.7-9.3); PLATELET COUNT 244 K/mm3 (130-400); RED BLOOD COUNT 3.77 M/mm3 (4.20-5.60); REDCELL DISTRIBUTION WIDTH-CV 17.5 % (11.5-14.5)
[2021-04-26 06:27] LABS: CALCIUM 9.5 mg/dL (8.4-10.2); CREATININE, serum 1.25 mg/dL (0.72-1.25)
--- NOTE | 2021-04-26 07:19 | NUR ---
Report given to SANJANA [place]
[2021-04-26] MEDS ORDERED: VERQUVO2.5 MG PO (07:35)
--- NOTE | 2021-04-26 09:17 | NUR ---
Aircraft Armament Mechanic met with patient and his , Elo, to discuss discharge plan. Patient is medically retired from the [employer] and makes his home with his and mother n law in [place]. Patient is independent and has no DME's or oxygen needs but he does use a CPAP at night. He sees a PCP (Elo horowitz) at the [facility], where he also receives his medications. 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 Patient stated with great certainty that he has "all of this stuff" at home and "there is no reason to keep" him here overnight. Patient states he has a pacemaker & has been shocked 7 times prior. His is patient's MPOA but it is not on file at the hospital. SW requested a copy for his charts.
[2021-04-26] MEDS ORDERED: PACERONE200 MG PO (12:26)
--- NOTE | 2021-04-26 13:07 | NUR ---
Initial visit; Patient thanked Geriatric Nurse Practitioner for looking in on him and wishing him well and offering encouragement.
[2021-04-26 13:39] LABS: POTASSIUM 4.3 mmol/L (3.4-5.0)
== END 2021-04-26 12:47 | disposition home or self-care (01) ==
LOC: COL.ER 21:52 → ICU 04-26 02:40
PROVIDERS: Emergency Medicine Emergency Medical Services; Student in an Organized Health Care Education/Training Program; ADMIT Internal Medicine
DX: I48.0 Paroxysmal atrial fibrillation (principal); E11.9 Type 2 diabetes mellitus without complications; E11.42 Type 2 diabetes mellitus with diabetic polyneuropathy; N18.9 Chronic kidney disease, unspecified; N17.9 Acute kidney failure, unspecified; I50.20 Unspecified systolic (congestive) heart failure; I11.0 Hypertensive heart disease with heart failure; J96.11 Chronic respiratory failure with hypoxia; G47.33 Obstructive sleep apnea (adult) (pediatric); F41.9 Anxiety disorder, unspecified; F32.9 Major depressive disorder, single episode, unspecified; Z79.84 Long term (current) use of oral hypoglycemic drugs; Z79.891 Long term (current) use of opiate analgesic; Z79.82 Long term (current) use of aspirin; Z79.899 Other long term (current) drug therapy; Z79.02 Long term (current) use of antithrombotics/antiplatelets; Z99.89 Dependence on other enabling machines and devices
CPT/HCPCS: G0378; J7030; J7500

== ENCOUNTER 2021-12-08 11:55 | Observation (INO) | payer OTHER, MEDICARE ==
[~2021-12-08] VITALS: Ht 175.3 cm; Wt 127.8 kg
[~2021-12-08 11:55] MED LIST changes: +JARDIANCE25 PO; +K-TAB20 PO; +LASIX 40MG TABL40 MG PO; +PACERONE200 MG PO; +VERQUVO2.5 MG PO; +WELLBUTRIN XL150 MG PO
[2021-12-08] MEDS ORDERED: DEPO-TESTOS100 MG/ML IM (12:27)
[2021-12-08] MEDS ORDERED: PACERONE200 MG PO (12:28)
[2021-12-08] MEDS ORDERED: SAXENDA6 MG/ML SQ (12:29)
[2021-12-08] MEDS ORDERED: NARCAN4 MG NS (12:29)
[2021-12-08] MEDS ORDERED: IMURAN 50MG TAB50 MG PO (12:31)
[2021-12-08 12:59] LABS: BASO % 0.5 % (0.0-2.0); EOS % 0.5 % (0.0-4.0); GRAN # 5.8 K/mm3 (1.4-6.5); GRAN % 78.4 % (42.2-75.2); HEMATOCRIT 44.3 % (42.0-52.0); HEMOGLOBIN 14.8 g/dl (13.5-18.0); LYMPH # 0.5 K/mm3 (1.2-3.4); LYMPH % 6.8 % (20.0-51.0); MEAN CELL VOLUME 108 fl (80.0-100.0); MEAN CORPUSCULAR HEMOGLOBIN 36 pg (27-31); MEAN CORPUSCULAR HGB CONC 33 g/dl (33.0-37.0); MEAN PLATELET VOLUME 10.3 fl (7.4-10.4); MONO % 13.4 % (1.7-9.3); PLATELET COUNT 203 K/mm3 (130-400); RED BLOOD COUNT 4.11 M/mm3 (4.20-5.60); REDCELL DISTRIBUTION WIDTH-CV 15.1 % (11.5-14.5)
[2021-12-08 13:13] LABS: ALBUMIN 4.1 gm/dL (3.5-5.0); BILIRUBIN,TOTAL 1.7 mg/dL (0.2-1.2); CALCIUM 8.7 mg/dL (8.4-10.2); CREATININE, serum 1.77 mg/dL (0.72-1.25); POTASSIUM 4.3 mmol/L (3.5-4.5); TOTAL PROTEIN 7.9 gm/dL (6.2-8.1)
[2021-12-08 13:28] LABS: TROPONIN-I 0.062 ng/mL (0.00-0.033)
[2021-12-08 20:18] VITALS: BP 101/64; PULSE 70; TEMP 98
--- NOTE | 2021-12-08 21:00 | NUR ---
Initial shift assessment done- states has chronic pain but nothing new,, VSS, Tele on- SR, requesting something to eat- sandwich box given, INT R/FA, o2 at 2L/nc, denies SOB at this time. Up to bathroom on own- steady on feet.
--- NOTE | 2021-12-08 22:30 | NUR ---
Called again the PA about ordering his night meds, states she is doing the now- pt states he needs his Roxicodone before bed-- patient also states that he has all his home meds here and he took them all today--but stated he did not bring his roxicodone from home,, informed pt that we need to give him his meds so that we know what he is taking and what interacts etc-- pt states understanding,, did clarify from pt that he did take his amiodarone today and his 2 doses of Eliquis - Ilana QUIÑONEZ was informed that he already took all his night meds tonight except the Roxicodone-
[2021-12-08 23:08] VITALS: BP 98/58; PULSE 78; TEMP 98
--- NOTE | 2021-12-08 23:11 | NUR ---
CPAP ON- NO O2 BLEED IN , SATS 93%
[2021-12-09 04:16] VITALS: BP 98/60; PULSE 65; TEMP 97.8
--- NOTE | 2021-12-09 05:06 | NUR ---
Quiet night- no requests, Tele- remains in SR,rate controlled
[2021-12-09 07:01] LABS: BASO # 0.1 K/mm3 (0.0-0.2); EOS # 0.1 K/mm3 (0.0-0.7); EOS % 2.6 % (0.0-4.0); GRAN # 2.8 K/mm3 (1.4-6.5); GRAN % 57.4 % (42.2-75.2); HEMATOCRIT 43.2 % (42.0-52.0); HEMOGLOBIN 14.1 g/dl (13.5-18.0); LYMPH # 1.2 K/mm3 (1.2-3.4); LYMPH % 23.4 % (20.0-51.0); MEAN CELL VOLUME 111 fl (80.0-100.0); MEAN CORPUSCULAR HEMOGLOBIN 36 pg (27-31); MEAN CORPUSCULAR HGB CONC 33 g/dl (33.0-37.0); MEAN PLATELET VOLUME 10.2 fl (7.4-10.4); MONO # 0.8 K/mm3 (0.1-0.6); MONO % 15.6 % (1.7-9.3); PLATELET COUNT 184 K/mm3 (130-400); RED BLOOD COUNT 3.89 M/mm3 (4.20-5.60); REDCELL DISTRIBUTION WIDTH-CV 15.6 % (11.5-14.5)
[2021-12-09 07:10] VITALS: BP 105/66; PULSE 71; TEMP 98.4
[2021-12-09 07:16] LABS: CREATININE, serum 1.88 mg/dL (0.72-1.25); MAGNESIUM 2.3 mg/dL (1.6-2.6); POTASSIUM 4.4 mmol/L (3.5-4.5)
--- NOTE | 2021-12-09 10:11 | NUR ---
Initial visit; Patient here with a history of heart issues. He thanked Recharger for remembering him and offering God's blessings. Jamal is receptive to being kept in Recharger's prayers.
--- NOTE | 2021-12-09 11:32 | NUR ---
EDGAR met with the patient and his , Elo (ph#[phone]), to discuss discharge plan. The patient lives in [place] with his . He reports independence with ADLs and does not have any DME. The patient's PCP is Dr. Kapadia with the [facility] and he receives his medications from the [facility]. The patient's DPOA-HC is in EMR and it designates his and daughter, Richy Mark. The patient plans on returning home with his upon discharge. No additional needs at this time. *Discharge plan: home with *
[2021-12-09 11:33] VITALS: BP 104/57; PULSE 76; TEMP 98.2
--- NOTE | 2021-12-09 11:40 | NUR ---
PATIENT ALERT, ORIENTED AND IN BED. NO COMPLAINTS OF ACUTE PAIN. CHRONIC PAIN HISTORY RATED AT 3-4. SCHEDULED DAILY HOME MED OXY GIVEN. ECHO PERFORMED, EX OX ORDERED BEFORE DISCHARGE. PATIENT ANTICIPATING DISCHARGE TODAY.
--- NOTE | 2021-12-09 13:21 | NUR ---
INT REMOVED, TELE DC'D. PATIENT EDUCATION PROVIDED. NO COMPLAINS, CONCERNS OR QUSTIONS. PATIENT WALKED OUT WITH LASHAY CHÁVEZ AND .
== END 2021-12-09 12:29 | disposition home or self-care (01) ==
LOC: COL.ER 11:55 → MEDICAL 14:23
PROVIDERS: Personal Emergency Response Attendant; ADMIT Student in an Organized Health Care Education/Training Program
DX: I48.0 Paroxysmal atrial fibrillation (principal); I11.0 Hypertensive heart disease with heart failure; I50.23 Acute on chronic systolic (congestive) heart failure; R77.8 Other specified abnormalities of plasma proteins; N17.9 Acute kidney failure, unspecified; J96.01 Acute respiratory failure with hypoxia; J81.1 Chronic pulmonary edema; J96.11 Chronic respiratory failure with hypoxia; G47.33 Obstructive sleep apnea (adult) (pediatric); E11.42 Type 2 diabetes mellitus with diabetic polyneuropathy; K21.9 Gastro-esophageal reflux disease without esophagitis; K51.90 Ulcerative colitis, unspecified, without complications; F32.A Depression, unspecified; F41.9 Anxiety disorder, unspecified; F10.10 Alcohol abuse, uncomplicated; Z99.89 Dependence on other enabling machines and devices; Z79.84 Long term (current) use of oral hypoglycemic drugs; Z79.01 Long term (current) use of anticoagulants; Z79.899 Other long term (current) drug therapy; Z99.81 Dependence on supplemental oxygen; Z95.0 Presence of cardiac pacemaker; Z87.891 Personal history of nicotine dependence
CPT/HCPCS: 99223-AI; G0378; J1940; J2704; J7500

== ENCOUNTER → 2022-03-16 | Outpatient (CLI) | payer MEDICARE, OTHER ==
[~2022-03-16] MED LIST changes: +DEPO-TESTOS100 MG/ML IM
[2022-03-16 11:23] LABS: HEMATOCRIT 42.9 % (42.0-52.0); HEMOGLOBIN 14.2 g/dl (13.5-18.0); MEAN CELL VOLUME 103 fl (80.0-100.0); MEAN CORPUSCULAR HEMOGLOBIN 34 pg (27-31); MEAN CORPUSCULAR HGB CONC 33 g/dl (33.0-37.0); MEAN PLATELET VOLUME 9.7 fl (7.4-10.4); PLATELET COUNT 232 K/mm3 (130-400); RED BLOOD COUNT 4.15 M/mm3 (4.20-5.60); REDCELL DISTRIBUTION WIDTH-CV 14.3 % (11.5-14.5)
[2022-03-16 11:43] LABS: CALCIUM 9.4 mg/dL (8.4-10.2); CREATININE, serum 1.24 mg/dL (0.72-1.25); POTASSIUM 4.2 mmol/L (3.5-4.5)
== END ==
LOC: COL.LAB 10:01
PROVIDERS: Internal Medicine Interventional Cardiology
DX: I50.22 Chronic systolic (congestive) heart failure (principal)

== ENCOUNTER 2022-09-25 13:46 | Inpatient (IN) | payer OTHER, MEDICARE ==
[~2022-09-25] VITALS: Ht 175.3 cm; Wt 136.1 kg
[2022-09-25 14:37] LABS: BASO % 0.2 % (0.0-2.0); EOS % 0.2 % (0.0-4.0); GRAN # 3.8 K/mm3 (1.4-6.5); GRAN % 77.4 % (42.2-75.2); HEMOGLOBIN 11.2 g/dl (13.5-18.0); LYMPH # 0.1 K/mm3 (1.2-3.4); LYMPH % 2.3 % (20.0-51.0); MEAN CELL VOLUME 104 fl (80.0-100.0); MEAN CORPUSCULAR HEMOGLOBIN 35 pg (27-31); MEAN CORPUSCULAR HGB CONC 33 g/dl (33.0-37.0); MEAN PLATELET VOLUME 9.3 fl (7.4-10.4); MONO # 0.9 K/mm3 (0.1-0.6); MONO % 19.3 % (1.7-9.3); PLATELET COUNT 207 K/mm3 (130-400); RED BLOOD COUNT 3.23 M/mm3 (4.20-5.60); REDCELL DISTRIBUTION WIDTH-CV 15.7 % (11.5-14.5)
[2022-09-25 14:39] LABS: HEMATOCRIT 33.5 % (42.0-52.0)
[2022-09-25 14:40] LABS: ARTERIAL BLD GAS O2 SATURATION 94.2 % (92-100); ARTERIAL BLD GAS TCO2 CT 27.3; ARTERIAL BLOOD GAS BASE EXCESS 2.2 (-2-2); ARTERIAL BLOOD GAS HCO3 26.1 meq/L (22-26); ARTERIAL BLOOD GAS PCO2 37.9 mmHg (35-45); ARTERIAL BLOOD GAS pH 7.46 (7.35-7.45)
[2022-09-25 14:52] LABS: ALANINE AMINOTRANSFERASE 21 U/L (0-55); ALBUMIN 3.8 gm/dL (3.5-5.0); ALKALINE PHOSPHATASE 52 U/L (40-150); ANION GAP 12 mmol/L (7-16); AST,SGOT 36 U/L (5-34); BILIRUBIN,TOTAL 0.6 mg/dL (0.2-1.2); BLOOD UREA NITROGEN 27 mg/dL (8-26); CALCIUM 8.7 mg/dL (8.4-10.2); CARBON DIOXIDE 25 mmol/L (22-29); CHLORIDE 95 mmol/L (98-107); CREATININE, serum 2.02 mg/dL (0.72-1.25); GLUCOSE 120 mg/dL (70-99); POTASSIUM 4.3 mmol/L (3.5-4.5); SODIUM 132 mmol/L (136-145); TOTAL PROTEIN 7.4 gm/dL (6.2-8.1)
[2022-09-25 14:59] LABS: TROPONIN-I < 0.010 ng/mL (0.00-0.033)
[2022-09-25 18:17] VITALS: BP 109/61; PULSE 78; TEMP 97.7
[2022-09-25 18:42] VITALS: BP 110/64; PULSE 74; TEMP 98.6
[2022-09-25 22:35] VITALS: BP 98/49; PULSE 81; TEMP 98.1
[2022-09-26 02:51] VITALS: BP 103/64; PULSE 74; TEMP 98.4
[2022-09-26 06:33] LABS: BASO % 0.2 % (0.0-2.0); GRAN # 3.7 K/mm3 (1.4-6.5); GRAN % 87.1 % (42.2-75.2); HEMOGLOBIN 12.2 g/dl (13.5-18.0); LYMPH # 0.1 K/mm3 (1.2-3.4); LYMPH % 2.8 % (20.0-51.0); MEAN CELL VOLUME 104 fl (80.0-100.0); MEAN CORPUSCULAR HEMOGLOBIN 34 pg (27-31); MEAN CORPUSCULAR HGB CONC 33 g/dl (33.0-37.0); MEAN PLATELET VOLUME 9.1 fl (7.4-10.4); MONO # 0.4 K/mm3 (0.1-0.6); MONO % 9.2 % (1.7-9.3); PLATELET COUNT 198 K/mm3 (130-400); RED BLOOD COUNT 3.55 M/mm3 (4.20-5.60); REDCELL DISTRIBUTION WIDTH-CV 15.6 % (11.5-14.5)
[2022-09-26 06:47] LABS: ALBUMIN 3.8 gm/dL (3.5-5.0); CALCIUM 9.3 mg/dL (8.4-10.2); CREATININE, serum 1.83 mg/dL (0.72-1.25); MAGNESIUM 2.1 mg/dL (1.6-2.6); PHOSPHOROUS 3.4 mg/dL (2.3-4.7); POTASSIUM 4.3 mmol/L (3.5-4.5)
[2022-09-26 07:49] VITALS: BP 117/70; PULSE 77; TEMP 98.4
[2022-09-26 11:30] LABS: COLLECTION METHOD CLEAN CATCH
[2022-09-26 11:38] LABS: PH 6.5 (5.0-8.5); URINE APPEARANCE Clear (CLEAR/HAZY); URINE BLOOD TRACE-INTACT (NEGATIVE); URINE COLOR Yellow (YELLOW); URINE GLUCOSE Negative (NEGATIVE); URINE KETONE Negative (NEGATIVE); URINE NITRATE Negative (NEGATIVE); URINE PROTEIN(semi-quant) Negative (NEGATIVE); URINE UROBILINOGEN 0.2 E.U/dL (0.2-1.0)
[2022-09-26 11:42] VITALS: BP 117/63; PULSE 74; TEMP 98.1
[2022-09-26 11:42] LABS: SQUAMOUS EPITHELIAL None Seen /hpf (0-10); URINE BACTERIA None Seen /hpf (NONE SEEN); URINE RBC 0-2 /hpf (0-2); URINE WBC None Seen /hpf (0-2)
[2022-09-26] MEDS ORDERED: OMNICEF 300MG300 MG PO (13:23)
[2022-09-26] MEDS ORDERED: DOXYCYCLINE 10100 MG PO (13:23)
[2022-09-26 15:34] VITALS: BP 113/63; PULSE 88; TEMP 97.9
[2022-09-26 19:06] VITALS: BP 109/70; PULSE 77; TEMP 97.6
[2022-09-26 23:23] VITALS: BP 126/71; PULSE 77; TEMP 97.7
[2022-09-27 03:10] VITALS: BP 145/88; PULSE 77; TEMP 97.6
[2022-09-27 06:25] LABS: GRAN # 3.7 K/mm3 (1.4-6.5); GRAN % 79.2 % (42.2-75.2); HEMATOCRIT 37.2 % (42.0-52.0); HEMOGLOBIN 12.5 g/dl (13.5-18.0); LYMPH # 0.2 K/mm3 (1.2-3.4); LYMPH % 4.9 % (20.0-51.0); MEAN CELL VOLUME 104 fl (80.0-100.0); MEAN CORPUSCULAR HEMOGLOBIN 35 pg (27-31); MEAN CORPUSCULAR HGB CONC 34 g/dl (33.0-37.0); MEAN PLATELET VOLUME 9.5 fl (7.4-10.4); MONO # 0.7 K/mm3 (0.1-0.6); MONO % 15.5 % (1.7-9.3); PLATELET COUNT 210 K/mm3 (130-400); RED BLOOD COUNT 3.57 M/mm3 (4.20-5.60); REDCELL DISTRIBUTION WIDTH-CV 15.3 % (11.5-14.5)
[2022-09-27 06:39] LABS: ALBUMIN 3.5 gm/dL (3.5-5.0); CALCIUM 9.3 mg/dL (8.4-10.2); CREATININE, serum 1.54 mg/dL (0.72-1.25); MAGNESIUM 1.9 mg/dL (1.6-2.6); PHOSPHOROUS 3.4 mg/dL (2.3-4.7); POTASSIUM 3.8 mmol/L (3.5-4.5)
[2022-09-27 07:06] VITALS: BP 125/84; PULSE 78; TEMP 97.9
[2022-09-27] MEDS ORDERED: DECADRON6 MG PO ×2 (08:18→18:21)
[2022-09-27] MEDS ORDERED: DOXYCYCLINE 10100 MG PO (18:21)
[2022-09-27] MEDS ORDERED: OMNICEF 300MG300 MG PO (18:21)
== END 2022-09-27 11:20 | disposition home or self-care (01) | DRG 177 ==
LOC: COL.ER 13:46 → MEDICAL 15:16
PROVIDERS: Internal Medicine Nephrology; Nurse Practitioner Primary Care; ADMIT Internal Medicine
PROC: XW033E5 Introduction of Remdesivir Anti-infective into Peripheral Vein, Percutaneous Approach, New Technology Group 5 (ICD-10-PCS; principal; 2022-09-25)
DX: U07.1 COVID-19 (principal); I50.23 Acute on chronic systolic (congestive) heart failure; J12.82 Pneumonia due to coronavirus disease 2019; J96.01 Acute respiratory failure with hypoxia; K51.90 Ulcerative colitis, unspecified, without complications; N17.9 Acute kidney failure, unspecified; Z68.41 Body mass index [BMI] 40.0-44.9, adult; K21.9 Gastro-esophageal reflux disease without esophagitis; F32.A Depression, unspecified; F41.9 Anxiety disorder, unspecified; E11.42 Type 2 diabetes mellitus with diabetic polyneuropathy; G47.33 Obstructive sleep apnea (adult) (pediatric); E66.9 Obesity, unspecified; M45.9 Ankylosing spondylitis of unspecified sites in spine; I11.0 Hypertensive heart disease with heart failure; J45.909 Unspecified asthma, uncomplicated; Z96.643 Presence of artificial hip joint, bilateral; F10.90 Alcohol use, unspecified, uncomplicated; E78.5 Hyperlipidemia, unspecified; I48.0 Paroxysmal atrial fibrillation; Z95.0 Presence of cardiac pacemaker; Z88.6 Allergy status to analgesic agent; Z88.1 Allergy status to other antibiotic agents; Z88.0 Allergy status to penicillin; Z88.8 Allergy status to other drugs, medicaments and biological substances; Z87.891 Personal history of nicotine dependence; Z79.82 Long term (current) use of aspirin; Z79.01 Long term (current) use of anticoagulants; Z79.84 Long term (current) use of oral hypoglycemic drugs; Z23 Encounter for immunization
CPT/HCPCS: A9270; J0248; J0696; J1100; J1815; J1940; J7050; J7500